=== PATIENT | female | born 1930 | race Caucasian/White ===

== ENCOUNTER 2019-04-29 12:24 | Emergency (ER) | payer MEDICARE, OTHER ==
--- NOTE | 2019-04-29 12:54 | Emergency Department Record ---
History of Present Illness - General Chief Complaint: Slurred speech Stated Complaint: SLURRED SPEECH/DIZZY/WEAKNESS Time Seen by Provider: 04/29/19 12:39 Source: Patient, Family Mode of Arrival: Wheelchair Limitations: No limitations - History of Present Illness Initial Comments: The patient is here due to a 5 day hx of intermittent weakness, dizziness, unsteady gait, and mild dysarthria. The patient's BP has been elevated for a week or so also. She did see her PCP 3 days ago and had her HTN medicines increased. Since her symptoms have not improved. There has been no hx of any falls or trauma, CHAVEZ, new visual changes, CP, SOB, back pain, AP or confusion. Onset/Timin -: Days(s) Location: Ataxia, Dysarthria, Speech Place: Home Severity: Mild Improves With: None Worsens With: None Context: Gradual onset Associated Symptoms: Confusion, Weakness - Isabel Coma Scale Eye Response: (4) Open spontaneously Motor Response: (6) Obeys commands Verbal Response: (5) Oriented [place] Total: 15 - Symptoms of Stroke Onset of Symptoms Date: 04/24/19 Symptoms of stroke: Dizziness, Muscle Weakness, Speech Dysfunction, Unsteady When Walking - Related Data Home Medications: Home Medications Medication Instructions Recorded Confirmed Last Taken Atorvastatin Calcium 20 mg PO DAILY 04/29/19 04/29/19 1 Day Ago ~04/28/19 Levothyroxine Sodium [Tirosint] 88 mcg PO DAILY 04/29/19 04/29/19 1 Day Ago ~04/28/19 Lisinopril 40 mg PO DAILY 04/29/19 04/29/19 1 Day Ago ~04/28/19 Metoprolol Tartrate 75 mg PO DAILY 04/29/19 04/29/19 1 Day Ago ~04/28/19 Allergies/Adverse Reactions: Allergies Allergy/AdvReac Type Severity Reaction Status Date / Time No Known Drug Allergies Allergy Verified 04/29/19 12:41 Travel Screening - Travel/Exposure Within Last 30 Days Have you traveled within the last 30 days?: No - Travel/Exposure Within Last Year Have you traveled outside the [place] in the last year?: No - Additonal Travel Details Have you been exposed to anyone with a communicable illness?: No - Travel Symptoms Symptom Screening: None Review of Systems Constitutional: Denies: Chills, Fever Eyes: Denies: Eye discharge ENT: Denies: Congestion Respiratory: Denies: Cough, Dyspnea Cardiovascular: Denies: Chest pain Endocrine: Denies: Fatigue Gastrointestinal: Denies: Nausea Genitourinary: Denies: Dysuria Musculoskeletal: Denies: Arthralgia Skin: Denies: Bruising Past Medical History - SOCIAL HISTORY Smoking Status: Never smoker Alcohol Use: None Drug Use: None - RESPIRATORY Hx Respiratory Disorders: No - CARDIOVASCULAR Hx Cardio Disorders: Yes Hx Hypertension: Yes Comment:: hyper cholesterol - NEURO Hx Neuro Disorders: No - GI Hx GI Disorders: No - Hx Genitourinary Disorders: No - ENDOCRINE Hx Endocrine Disorders: Yes Hx Diabetes: No Hx Thyroid Disease: Yes - MUSCULOSKELETAL Hx Musculoskeletal Disorders: No - PSYCH Hx Psych Problems: No - HEMATOLOGY/ONCOLOGY Hx Hematology/Oncology Disorders: No Family Medical History Any Significant Family History?: Yes Hx Cancer: Grandparents Physical Exam - General General Appearance: Alert, Oriented x3, Cooperative, No acute distress - Head Head exam: Atraumatic, Normocephalic, Normal inspection - Eye Eye exam: Normal appearance, PERRL, EOMI - ENT Throat exam: Normal inspection. negative: Tonsillar erythema, Tonsillar exudate - Neck Neck exam: Normal inspection. negative: Lymphadenopathy, Meningismus, Tenderness - Respiratory Respiratory exam: Normal lung sounds bilaterally. negative: Respiratory distress - Cardiovascular Cardiovascular Exam: Regular rate, Normal rhythm, Normal heart sounds - GI/Abdominal GI/Abdominal exam: Soft, Normal bowel sounds. negative: Tenderness - Extremities Extremities exam: Normal inspection, Full ROM, Normal capillary refill. negative: Tenderness - Neurological Neurological exam: Alert, Normal gait. negative: Abnormal gait, Motor sensory deficit Course Vital Signs 04/29/19 12:28 Temperature 97.9 F Pulse Rate 67 Respiratory 20 Rate Blood Pressure 187/98 Pulse Ox 98 - Reevaluation(s) Reevaluation #1: The patient is doing OK at this time. She is resting comfortably with no acute changes. Due to the nature of her symptoms I did recommend a transfer for further evaluation and since the patient does have a [facility] Doctor she would like to go there. I then did talk with Dr. Smith on the stroke team and he would like the patient transferred to the ER at [facility] for further evaluation. I then did discuss the case with Dr. Oliver and he did accept the patient in transfer. 04/29/19 14:17 Medical Decision Making - Data Complexity MDM Data: Labs Ordered and/or Reviewed, X-Ray Ordered and/or Reviewed, EKG Ordered and/or Reviewed - Lab Data Result diagrams: 04/29/19 13:00 04/29/19 13:00 - EKG Data -: EKG Interpreted by Me EKG: No Acute Changes (LVH, O/W neg. RsR' V1-2 variant.) - Radiology Data Radiology results: Report reviewed (Head CT: Neg for acute changes.) Disposition Disposition: Transfer Clinical Impression: TIA (transient ischemic attack) Disposition: Acute Care Hospital Transfer Transfer To: [facility] ER Reason For Transfer: Neurology Accepting Physician: Benito Time Discussed w/Accepting Physician: 14:24 Condition: (2) Stable Forms: Patient Portal Access Time of Disposition: 14:24 Quality - Quality Measures Quality Measures: N/A - Blood Pressure Screening View Details: Yes Does Patient Have Any of the Following: Active Dx of HTN Blood Pressure Classification: Hypertensive Reading Systolic Measurement: 187 Diastolic Measurement: 98 Screening for High Blood Pressure: Patient Exclusion, Hx of HTN [[id number]]
[2019-04-29 13:08] LABS: ABSOLUTE NEUTROPHIL COUNT 3.42; BASO % 0.2 % (0-6); EOS % 2.5 % (0-6); GRAN % 53.9 % (47-80); HEMATOCRIT 41.8 % (35.0-47.0); HEMOGLOBIN 13.3 gm/dl (11.6-16.0); LYMPH % 35.1 % (16-45); MEAN CELL VOLUME 94.8 fl (81-97); MEAN CORPUSCULAR HEMOGLOBIN 30.2 pg (27-33); MEAN CORPUSCULAR HGB CONC 31.8 g/dl (32-36); MONO % 8.3 % (0-9); PLATELET COUNT 226 K/uL (130-400); RED BLOOD COUNT 4.41 M/uL (3.80-5.40); RED CELL DISTRIBUTION WIDTH 13.1 % (11.5-14.5); WHITE BLOOD COUNT W/O DIFF 6.4 K/uL (4.2-12.2)
[2019-04-29 13:19] LABS: BLOOD UREA NITROGEN 17 mg/dL (8-23); CREATININE 0.6 mg/dL (0.5-0.9); EST GLOMERULAR FILTRATION RATE > 60 mL/min
[2019-04-29 13:20] LABS: TOTAL PROTEIN 6.7 g/dL (6.6-8.7)
[2019-04-29 13:21] LABS: GLUCOSE,RANDOM 100 mg/dL (74-109)
[2019-04-29 13:24] LABS: ALB/GLOB RATIO 1.4 (1.1-1.8); ALBUMIN 3.9 g/dL (4.0-5.0); ALT/SGPT 10 U/L (<33); AST/SGOT 16 U/L (10.0-35.0)
[2019-04-29 13:25] LABS: ALKALINE PHOSPHATASE 67 U/L (35-104)
[2019-04-29 13:36] LABS: THYROID STIMULATING HORMONE 0.71 uIU/mL (0.270-4.20)
--- NOTE | 2019-04-29 13:44 | CT SCAN REPORT ---
EXAMINATION: CT Head without IV Contrast EXAM DATE: 04/29/2019 1:26 PM TECHNIQUE: Standard protocol CT images of the head were obtained without intravenous contrast. Macias l and sagittal reconstructed images were created. INDICATION: Weakness and slurred speech. COMPARISON: None HAND DOMINANCE: Unknown. ENCOUNTER: Not applicable FINDINGS: No acute intracranial hemorrhage or acute cortical infarct evident. Low-attenuation changes in the globus pallidus. These could indicate prior ongoing insults including ischemic change, carbon monoxide exposure. Moderate volume loss and corresponding ventricular enlargement. Some low-attenuation changes in the w hussein matter suggest mild old small vessel ischemic change. No mass or hydrocephalus. Prior bilateral lens surgery. IMPRESSION: 1. No acute intracranial hemorrhage or acute cortical infarct evident. 2. Globus pallidus changes of uncertain age. Correlation needed as to whether there has been recent t oxic exposure such as carbon monoxide. 3. Aging changes and old small vessel ischemic changes. Dictated by: Houston Elliott MD on 04/29/2019 1:39 PM. .
[2019-04-29] MEDS ORDERED: ASPIRIN 325 MG TABLET PO ONE (14:11)
== END 2019-04-29 15:02 | disposition short-term general hospital (02) ==
LOC: ER 12:24
DX: G45.9 Transient cerebral ischemic attack, unspecified (principal); I10 Essential (primary) hypertension
CPT/HCPCS: 70450; 80053; 84443; 84484; 85025; 93005; 93010; 99285